=== PATIENT | male | born 1990 | race African-American/Black ===

== ENCOUNTER 2023-07-29 11:44 | Emergency (ER) | payer OTHER ==
[~2023-07-29] VITALS: Ht 175.3 cm; Wt 68.5 kg
[2023-07-29 12:36] VITALS: TEMP 98.6
[2023-07-29] MEDS ORDERED: cefTRIAXone SOD 1,000 MG VL IM ONE (12:45)
[2023-07-29] MEDS ORDERED: CLIN300C70 PO (13:04)
[2023-07-29] MEDS ORDERED: IBUP-1456 PO (13:04)
== END 2023-07-29 13:25 | disposition home or self-care (01) ==
LOC: ER 11:44
DX: K04.7 Periapical abscess without sinus (principal); F17.210 Nicotine dependence, cigarettes, uncomplicated
CPT/HCPCS: 96372; 99283; J0696